=== PATIENT | male | born 1995 | race Hispanic/Latino ===

== ENCOUNTER 2017-05-18 03:33 | Emergency (ER) | payer SELFPAY ==
[~2017-05-18] VITALS: Ht 165.1 cm; Wt 73.7 kg
[2017-05-18 04:12] VITALS: BP 152/117
[2017-05-18] MEDS ORDERED: PERCOCET 5/31 TABLET PO (05:41)
[2017-05-18] MEDS ORDERED: MOTRIN800 MG PO (05:41)
[2017-05-18] MEDS ORDERED: KEFLEX500 MG PO (05:42)
== END 2017-05-18 06:20 | disposition home or self-care (01) ==
LOC: EME 03:33
PROC: 3E0T3BZ Introduction of Anesthetic Agent into Peripheral Nerves and Plexi, Percutaneous Approach (ICD-10-PCS; principal; 2017-05-18)
DX: S62.630B Displaced fracture of distal phalanx of right index finger, initial encounter for open fracture (principal); W23.0XXA Caught, crushed, jammed, or pinched between moving objects, initial encounter; F17.200 Nicotine dependence, unspecified, uncomplicated
CPT/HCPCS: 73140; 99281; 99283; S0020

== ENCOUNTER 2017-05-20 10:02 | Emergency (ER) | payer SELFPAY ==
[~2017-05-20] VITALS: Ht 167.6 cm; Wt 72.3 kg
[~2017-05-20 10:02] MED LIST: KEFLEX500 MG PO; MOTRIN800 MG PO; PERCOCET 5/31 TABLET PO
[2017-05-20 13:50] VITALS: BP 142/81
== END 2017-05-20 13:50 | disposition home or self-care (01) ==
LOC: EME 10:02
PROC: 0HQFXZZ Repair Right Hand Skin, External Approach (ICD-10-PCS; principal; 2017-05-20)
DX: S62.610B Displaced fracture of proximal phalanx of right index finger, initial encounter for open fracture (principal); W23.0XXA Caught, crushed, jammed, or pinched between moving objects, initial encounter; F17.200 Nicotine dependence, unspecified, uncomplicated
CPT/HCPCS: 99281; 99284; J3010; S0020